=== PATIENT | female | born 1935 | race African-American/Black ===

== ENCOUNTER 2016-11-09 12:31 | Inpatient (IN) | payer OTHER ==
[2016-11-09 12:46] VITALS: BMI 23.1
[2016-11-09] MEDS ORDERED: ACETAMINOPHEN INJECTION 100 ML IVPB ONE (14:09)
--- NOTE | 2016-11-09 14:09 | PDOC ---
History of Present Illness - General History Source: Patient, Old Records Exam Limitations: No Limitations - History of Present Illness Initial Comments: 11/09/16 17:28 The patient is a 80 year old female, accompanied by son, with a past medical history of dementia and HTN who presents to the emergency department for further evaluation of knee pain. Son states that yesterday he called his mother and became concerned when she did not answer the phone. When son went to check on the patient she was in the bathroom trying to hold herself up on the sink. Patient states that 2 days ago she slowly slid out of her chair and was on the floor for an undetermined amount of time. <Byron Glover - Last Filed: 11/09/16 17:46> <Carl Guajardo - Last Filed: 11/09/16 18:29> - General Chief Complaint: Pain, Acute Stated Complaint: LEG PAIN Time Seen by Provider: 11/09/16 14:08 Past History <Byron Glover - Last Filed: 11/09/16 17:46> - Past Medical History CVA: Yes Dementia: Yes HTN: Yes Other medical history: athritis - Psycho/Social/Smoking Cessation Hx Suicidal Ideation: No Smoking History: Never smoked <Carl Guajardo - Last Filed: 11/09/16 18:29> - Past Medical History Allergies/Adverse Reactions: Allergies Allergy/AdvReac Type Severity Reaction Status Date / Time No Known Allergies Allergy Verified 11/09/16 12:37 Home Medications: Ambulatory Orders Memantine HCl [Namenda Xr] 28 mg PO DAILY 11/09/16 Review of Systems - Review of Systems Able to Perform ROS?: Yes Comments:: 11/09/16 17:29 GENERAL/CONSTITUTIONAL: No fever or chills. No weakness. HEAD, EYES, EARS, NOSE AND THROAT: No change in vision. No ear pain or discharge. No sore throat. CARDIOVASCULAR: No chest pain or shortness of breath. RESPIRATORY: No cough, wheezing, or hemoptysis. GASTROINTESTINAL: No nausea, vomiting, diarrhea or constipation. GENITOURINARY: No dysuria, frequency, or change in urination. MUSCULOSKELETAL:(+) Knee pain. No neck or back pain. SKIN: No rash NEUROLOGIC: No headache, vertigo, loss of consciousness, or change in strength/ sensation. ENDOCRINE: No increased thirst. No abnormal weight change. HEMATOLOGIC/LYMPHATIC: No anemia, easy bleeding, or history of blood clots. ALLERGIC/IMMUNOLOGIC: No hives or skin allergy. <DukerosarioByron - Last Filed: 11/09/16 17:46> *Physical Exam - Vital Signs Last Vital Signs Temp Pulse Resp BP Pulse Ox 97.1 F L 103 H 18 195/92 97 11/09/16 12:37 11/09/16 12:37 11/09/16 12:37 11/09/16 12:37 11/09/16 12:37 - Physical Exam Comments: 11/09/16 17:29 GENERAL: Awake, alert, in no acute distress HEAD: No signs of trauma EYES: PERRLA, EOMI, sclera anicteric, conjunctiva clear ENT: Auricles normal inspection, hearing grossly normal, nares patent, oropharynx clear without exudates. Moist mucosa NECK: Normal ROM, supple, no lymphadenopathy, JVD, or masses LUNGS: Breath sounds equal, clear to auscultation bilaterally. No wheezes, and no crackles HEART: Regular rate and rhythm, normal S1 and S2, no murmurs, rubs or gallops ABDOMEN: Soft, nontender, normoactive bowel sounds. No guarding, no rebound. No masses EXTREMITIES: (+) Tenderness along medial collateral ligament, right leg effusion. Normal range of motion. No clubbing or cyanosis. No cords, erythema. NEUROLOGICAL: (+) Inability to stand or ambulate leg. Cranial nerves II through XII grossly intact. Normal speech. SKIN: Warm, Dry, normal turgor, no rashes or lesions noted. <ShamirGoyo ponceke - Last Filed: 11/09/16 17:46> - Vital Signs Last Vital Signs Temp Pulse Resp BP Pulse Ox 97.1 F L 103 H 18 195/92 97 11/09/16 12:37 11/09/16 12:37 11/09/16 12:37 11/09/16 12:37 11/09/16 12:37 <Carl Guajardo - Last Filed: 11/09/16 18:29> ED Treatment Course - LABORATORY CBC & Chemistry Diagram: 11/09/16 14:36 11/09/16 14:36 - ADDITIONAL ORDERS Additional order review: Laboratory Results 11/09/16 14:36 Sodium 140 Potassium 4.2 Chloride 104 Carbon Dioxide 27 Anion Gap 9 BUN 14 Creatinine 0.9 Creat Clearance w eGFR > 60 Random Glucose 116 H Calcium 9.3 Total Bilirubin 1.1 H AST 17 ALT 14 Alkaline Phosphatase 76 Creatine Kinase 304 H CK-MB (CK-2) 1.800 Troponin I < 0.02 Total Protein 7.2 Albumin 3.4 11/09/16 14:36 RBC 4.99 MCV 82.2 MCHC 32.2 RDW 15.4 MPV 9.0 - Medications Given in the ED: ED Medications Discontinued Medications Generic Name Dose Route Start Last Admin Trade Name Freq PRN Reason Stop Dose Admin Acetaminophen 1,000 mg 11/09/16 14:36 11/09/16 14:36 Ofirmev Injection - IVPB 11/09/16 14:37 1,000 mg NOW ONE Administration Sodium Chloride 1,000 ml 11/09/16 14:33 11/09/16 14:34 Normal Saline - IV 11/09/16 14:34 1,000 ml NOW ONE Administration <Byron Glover - Last Filed: 11/09/16 17:46> - LABORATORY CBC & Chemistry Diagram: 11/09/16 14:36 11/09/16 14:36 <Carl Guajardo - Last Filed: 11/09/16 18:29> *DC/Admit/Observation/Transfer - Attestations Scribe Attestion: 11/09/16 17:29 Documentation prepared by Byron Glover, acting as medical education manager for Carl Guajardo DO. <Byron Glover - Last Filed: 11/09/16 17:46> - Discharge Dispostion Admit: Yes - Attestations Physician Attestion: 11/09/16 14:09 I, Dr. Carl Guajardo, attest that this document has been prepared under my direction and personally reviewed by me in its entirety. I further attest, that it accurately reflects all work, treatment, procedures and medical decision -making performed by me. <Carl Guajardo - Last Filed: 11/09/16 18:29> Diagnosis at time of Disposition: Inability to ambulate due to knee, Effusion, right knee, Confusion, Ataxia Medial collateral ligament sprain of knee Qualifiers: Encounter type: initial encounter Laterality: right Qualified Code(s): S83.411A - Sprain of medial collateral ligament of right knee, initial encounter Dementia Qualifiers: Dementia type: unspecified type Dementia behavioral disturbance: without behavioral disturbance Qualified Code(s): F03.90 - Unspecified dementia without behavioral disturbance - Discharge Dispostion Condition at time of disposition: Improved - Referrals Referrals: Daly Del Castillo MD [Primary Care Provider] -
[2016-11-09] MEDS ORDERED: SODIUM CHLORIDE 0.9% 1000 ML INFUS.BAG IV ONE (14:33)
[2016-11-09] MEDS ORDERED: ACETAMINOPHEN 1000 MG/100 ML VIAL (NON FORMULARY) IVPB ONE (14:36)
[2016-11-09 14:43] LABS: MCH 26.4 pg (25.7-33.7); MCHC 32.2 g/dl (32.0-36.0); MEAN CELL VOLUME 82.2 fl (80-96); PLATELET COUNT 144 K/MM3 (134-434); RDW 15.4 % (11.6-15.6); WHITE BLOOD COUNT 10.7 K/mm3 (4.0-10.0)
[2016-11-09 15:16] LABS: ALBUMIN 3.4 g/dl (3.4-5.0); ANION GAP 9 (8-16); BILIRUBIN,TOTAL 1.1 mg/dL (0.2-1.0); CALCIUM 9.3 mg/dL (8.5-10.1); CO2 27 mmol/L (21-32); COCKROFT - GAULT 48.1865; CREATININE 0.9 mg/dL (0.55-1.02); GLUCOSE,RANDOM 116 mg/dL (74-106); SGPT/ALT 14 U/L (12-78); TOT PROT 7.2 g/dl (6.4-8.2)
[2016-11-09 15:19] LABS: ALK PHOS 76 U/L (45-117); TROPONIN I < 0.02 ng/ml (0.00-0.05)
[2016-11-09 15:20] LABS: SGOT/AST 17 U/L (15-37)
[2016-11-09] MEDS ORDERED: traMADol HCL 50 MG TABLET PO ONE (18:19)
[2016-11-09] MEDS ORDERED: SODIUM CHLORIDE 1,000 ML IV SCH (18:30)
[2016-11-09] MEDS ORDERED: traMADol HCL 50 MG TABLET ONE (21:24)
[2016-11-09 22:26] LABS: URINE APPEARANCE CLEAR; URINE BILIRUBIN NEGATIVE (NEGATIVE); URINE BLOOD NEGATIVE (NEGATIVE); URINE COLOR AMBER; URINE GLUCOSE (UA) NEGATIVE (NEGATIVE); URINE KETONE 1+ (NEGATIVE); URINE LEUK ESTERASE NEGATIVE (NEGATIVE); URINE NITRITE NEGATIVE (NEGATIVE); URINE UROBILINOGEN 4.0 E.U/dl E.U./dl (0.2-1.0)
[2016-11-09 22:46] LABS: URINE PROTEIN 1+ (NEGATIVE)
[2016-11-09 22:50] LABS: URINE BACTERIA RARE /hpf (NONE SEEN); URINE MUCUS MANY; URINE RBC 1 /hpf (0-3); URINE WBC 22 /hpf (3-5)
[2016-11-10] MEDS: DEXTROSE 5%-0.45% SALINE 1,000 ML IV SCH ×2 (02:17→11:05)
[2016-11-10] MEDS ORDERED: PATIENT'S OWN MEDICATION (NON-FORMULARY) (Memantine Hcl [Namenda Xr] 28 MG) PO SCH (10:00)
[2016-11-10] MEDS: HEPARIN NA (PORCINE) 5,000 UNITS/ML 1ML VIAL SQ SCH ×2 (11:06→23:05)
[2016-11-10] MEDS ORDERED: MEMANTINE HCL 10 MG TABLET (FP) PO SCH (11:45)
[2016-11-10] MEDS ORDERED: INFLUENZA VACCINE 45 MCG/0.5 ML (MDV 16-17) IM ONE (16:50)
[2016-11-10] MEDS ORDERED: PNEUMOC 13-VAL CONJ-DIP CRM/PF 0.5 ML DISP.SYRIN IM ONE (16:50)
--- NOTE | 2016-11-10 17:23 | PN ---
Progress Note, Physician History of Present Illness: Pt seen and examined H&P to follow - Current Medication List Current Medications: Active Medications Heparin Sodium (Porcine) (Heparin -) 5,000 unit SQ BID COUNT INCLUDES [facility] Last Admin: 11/10/16 11:06 Dose: 5,000 unit Dextrose/Sodium Chloride (D5-1/2ns -) 1,000 mls @ 75 mls/hr IV ASDIR COUNT INCLUDES THE [facility] Last Admin: 11/10/16 11:05 Dose: 75 mls/hr Memantine (Namenda -) 10 mg PO BID COUNT INCLUDES THE [facility] - Objective Vital Signs: Vital Signs Temperature 98.6 F 11/10/16 13:51 Pulse Rate 103 H 11/10/16 13:51 Respiratory Rate 20 11/10/16 13:51 Blood Pressure 152/99 11/10/16 13:51 O2 Sat by Pulse Oximetry (%) 98 11/10/16 07:46
[2016-11-10] MEDS: amLODIPine BESYLATE 2.5 MG TABLET (FP) PO SCH (20:17)
[2016-11-10] MEDS ORDERED: amLODIPine BESYLATE 2.5 MG TABLET (FP) PO ONE (21:30)
[2016-11-10] MEDS: MEMANTINE HCL 10 MG TABLET (FP) PO SCH (23:13)
[2016-11-11 07:39] LABS: BASOPHIL 0.6 % (0-2.0); EOSINOPHIL 0.3 % (0-4.5); MEAN CELL VOLUME 81.7 fl (80-96); MEAN PLT VOLUME 9.9 fl (7.5-11.1); NEUTROPHILS 73.1 % (42.8-82.8); PLATELET COUNT 120 K/MM3 (134-434); RDW 15.4 % (11.6-15.6); WHITE BLOOD COUNT 7.4 K/mm3 (4.0-10.0)
[2016-11-11 08:24] LABS: ALBUMIN 2.5 g/dl (3.4-5.0); ALK PHOS 73 U/L (45-117); ANION GAP 12 (8-16); CALCIUM 8.5 mg/dL (8.5-10.1); CO2 25 mmol/L (21-32); COCKROFT - GAULT 86.7425; CREATININE 0.5 mg/dL (0.55-1.02); GLUCOSE,RANDOM 93 mg/dL (74-106); SGOT/AST 13 U/L (15-37); SGPT/ALT 13 U/L (12-78); TOT PROT 5.6 g/dl (6.4-8.2)
--- NOTE | 2016-11-11 09:53 | CONSULT ---
Consult - text type - Consultation Consultation Note: FULL CONSULTATION DICTATED IMP: DJD RIGHT KNEE AND ? PROBLEM RIGHT SHOULDER PLAN: XRAY RIGHT SHOULDER, ANALGESICS.
[2016-11-11] MEDS: MEMANTINE HCL 10 MG TABLET (FP) PO SCH ×2 (09:55→21:47)
[2016-11-11] MEDS: HEPARIN NA (PORCINE) 5,000 UNITS/ML 1ML VIAL SQ SCH ×2 (09:55→21:47)
[2016-11-11] MEDS: amLODIPine BESYLATE 2.5 MG TABLET (FP) PO SCH (09:55)
[2016-11-11] MEDS: ACETAMINOPHEN 500 MG TABLET (FP) PO PRN ×2 (10:52→21:47)
--- NOTE | 2016-11-11 13:13 | CONS ---
DATE OF CONSULTATION: 11/11/2016 The patient is an 80-year-old demented and confused female status post questionable fall at home, complaining of some pain in her right shoulder and her right knee. Patient cannot give really a history of when she fell or her level of pain prior to the fall. 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 On physical exam, she has a great deal of pain with any range of motion of her right knee and the knee only moves about 0 to 30 degrees. Good stability, varus/valgus. Calf is soft, nontender. Neurovascularly intact. Right upper extremity is also held at her side. Difficult to examine her but with gentle motion I can pretty much make it out that her pain is coming from her shoulder, elbow, wrist and fingers appear to be intact. There does not appear to be any crepitus or swelling in any location but moving her shoulder does hurt her. Nontender clavicle, AC joint, acromion, bicipital groove. She also has good motion in hip, ankle and toes. X-rays which are reviewed of her right knee show severe tricompartmental DJD. CAT scan reveals the same with no evidence of any acute fracture. IMPRESSION: Severe degenerative joint disease, right knee. No acute fracture. Some sort of derangement of right shoulder. I ordered x-rays of her shoulder, gave her some analgesics and I will see how she does after the x-ray and on the analgesics and see how she does. ALBIN SUGGS M.D. [id number]
--- NOTE | 2016-11-11 23:46 | HP ---
Admitting History and Physical - Admission Chief Complaint: Unsteady gait. Pt was seen and examined 11/10/16 however it was mistakenly entered as a progress note History of Present Illness: Pt is a 80 y/o female w/ PMH significant for dementia who loves at home with her son. Pt was found by her son in the bathroom bc she couldn't stand up. Pt had fallen the night before and was stuck in the bedroom and then made her way into the bathroom. Pt c/o pain initially to her right knee and denied any LOC or head trauma. In the ER pt had ct scan head wc did not show any acute pathology. 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 ...: No - Past Surgical History Additional Past Surgical History: Lt knee replacement - Smoking History Smoking history: Never smoked - Alcohol/Substance Use Hx Alcohol Use: No Home Medications - Allergies Allergies/Adverse Reactions: Allergies Allergy/AdvReac Type Severity Reaction Status Date / Time No Known Allergies Allergy Verified 11/09/16 12:37 - Home Medications Home Medications: Ambulatory Orders Memantine HCl [Namenda Xr] 28 mg PO DAILY 11/09/16 Family Disease History - Family Disease History Family History: Unable to Obtain Review of Systems Unable to obtain ROS, reason: Dementia Physical Examination Vital Signs: Vital Signs Temperature 98.9 F 11/11/16 22:00 Pulse Rate 101 H 11/11/16 22:00 Respiratory Rate 20 11/11/16 22:00 Blood Pressure 155/61 11/11/16 22:00 O2 Sat by Pulse Oximetry (%) 99 11/11/16 09:00 Constitutional: Yes: Well Nourished HENT: Yes: WNL Neck: Yes: Supple Cardiovascular: Yes: WNL, Regular Rate and Rhythm Respiratory: Yes: WNL, Regular, CTA Bilaterally Gastrointestinal: Yes: WNL, Normal Bowel Sounds, Soft Musculoskeletal: Yes: WNL Extremities: Yes: Other ((+) slight swelling rt knee) Neurological: Yes: WNL Labs: CBC, BMP 11/11/16 06:00 11/11/16 06:00 Problem List - Problems (1) Inability to ambulate due to knee Assessment/Plan: Ortho consult pain management Pt will need sw consult Code(s): R26.2 - DIFFICULTY IN WALKING, NOT ELSEWHERE CLASSIFIED (2) Dementia Code(s): F03.90 - UNSPECIFIED DEMENTIA WITHOUT BEHAVIORAL DISTURBANCE Qualifiers: Dementia type: unspecified type Dementia behavioral disturbance: without behavioral disturbance Qualified Code(s): F03.90 - Unspecified dementia without behavioral disturbance (3) Unsteady gait Assessment/Plan: PT eval Code(s): R26.81 - UNSTEADINESS ON FEET
--- NOTE | 2016-11-11 23:47 | PN ---
Progress Note, Physician History of Present Illness: Pt has been slightly tachy Pt also is complaining of shoulder pain - Current Medication List Current Medications: Active Medications Acetaminophen (Tylenol -) 1,000 mg PO Q6H PRN PRN Reason: FEVER OR PAIN Last Admin: 11/11/16 21:47 Dose: 1,000 mg Amlodipine Besylate (Norvasc -) 2.5 mg PO DAILY [facility] Last Admin: 11/11/16 09:55 Dose: 2.5 mg Heparin Sodium (Porcine) (Heparin -) 5,000 unit SQ BID [facility] Last Admin: 11/11/16 21:47 Dose: 5,000 unit Memantine (Namenda -) 10 mg PO BID [facility] Last Admin: 11/11/16 21:47 Dose: 10 mg - Objective Vital Signs: Vital Signs Temperature 98.9 F 11/11/16 22:00 Pulse Rate 101 H 11/11/16 22:00 Respiratory Rate 20 11/11/16 22:00 Blood Pressure 155/61 11/11/16 22:00 O2 Sat by Pulse Oximetry (%) 99 11/11/16 09:00 Constitutional: Yes: Well Nourished Neck: Yes: Supple Cardiovascular: Yes: Tachycardia Respiratory: Yes: WNL, Regular, CTA Bilaterally Gastrointestinal: Yes: WNL, Normal Bowel Sounds, Soft Extremities: Yes: Other ((+) slight swelling rt knee) Labs: CBC, BMP 11/11/16 06:00 11/11/16 06:00 Problem List - Problems (1) Tachycardia Assessment/Plan: Cardio consult Check echo/tsh/labs Code(s): R00.0 - TACHYCARDIA, UNSPECIFIED (2) Inability to ambulate due to knee Assessment/Plan: Ortho consult noted Will get PT eval pain management Pt will need sw consult ?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 Xrays have not shown any acute pathology Code(s): R26.2 - DIFFICULTY IN WALKING, NOT ELSEWHERE CLASSIFIED (3) Dementia Code(s): F03.90 - UNSPECIFIED DEMENTIA WITHOUT BEHAVIORAL DISTURBANCE Qualifiers: Dementia type: unspecified type Dementia behavioral disturbance: without behavioral disturbance Qualified Code(s): F03.90 - Unspecified dementia without behavioral disturbance (4) Unsteady gait Assessment/Plan: PT eval Code(s): R26.81 - UNSTEADINESS ON FEET
[2016-11-12] MEDS: MEMANTINE HCL 10 MG TABLET (FP) PO SCH ×2 (09:49→22:31)
[2016-11-12] MEDS: HEPARIN NA (PORCINE) 5,000 UNITS/ML 1ML VIAL SQ SCH ×2 (09:49→22:31)
--- NOTE | 2016-11-12 09:50 | PN ---
Progress Note (short form) - Note Progress Note: Ortho Pt seen and examined with right knee and shoulder pain. Pt states that she had an injection into her right shoulder a few weeks ago. R UE- + swelling, + ttp, limited rom, nvi R LE- + swelling, + ttp, decr rom, nvi a/p- right knee djd, right shoulder GH DJD with chronic rc arthropathy Pt defers an injection at the present time PT wbat pain control december d/c from ortho pov
--- NOTE | 2016-11-12 13:50 | CON.CARD ---
Consult Reason for Consultation:: syncope/fall - History of Present Illness History of Present Illness: Pt is a 80 y/o female w/ PMH significant for dementia who loves at home with her son. Pt was found by her son in the bathroom bc she couldn't stand up. Pt had fallen the night before and was stuck in the bedroom and then made her way into the bathroom. Pt c/o pain initially to her right knee and denied any LOC or head trauma. In the ER pt had ct scan head wc did not show any acute pathology. 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 ...: No - Alcohol/Substance Use Hx Alcohol Use: No - Smoking History Smoking history: Never smoked Home Medications - Allergies Allergies/Adverse Reactions: Allergies Allergy/AdvReac Type Severity Reaction Status Date / Time No Known Allergies Allergy Verified 11/09/16 12:37 - Home Medications Home Medications: Ambulatory Orders Memantine HCl [Namenda Xr] 28 mg PO DAILY 11/09/16 Review of Systems - Review of Systems Constitutional: reports: No Symptoms Eyes: reports: No Symptoms HENT: reports: No Symptoms Neck: reports: No Symptoms Cardiovascular: reports: No Symptoms Gastrointestinal: reports: No Symptoms Genitourinary: reports: No Symptoms Breasts: reports: No Symptoms Reported Musculoskeletal: reports: No Symptoms Integumentary: reports: No Symptoms Neurological: reports: No Symptoms Endocrine: reports: No Symptoms Hematology/Lymphatic: reports: No Symptoms Psychiatric: reports: No Symptoms Vital Signs: Vital Signs Temperature 97.8 F 11/12/16 10:00 Pulse Rate 99 H 11/12/16 10:00 Respiratory Rate 18 11/12/16 10:00 Blood Pressure 127/66 11/12/16 10:00 O2 Sat by Pulse Oximetry (%) 98 11/11/16 21:00 Constitutional: Yes: Well Nourished, No Distress, Calm Eyes: Yes: WNL, Conjunctiva Clear, EOM Intact HENT: Yes: WNL, Atraumatic, Normocephalic Neck: Yes: WNL, Supple, Trachea Midline Respiratory: Yes: WNL, Regular, CTA Bilaterally Gastrointestinal: Yes: WNL, Normal Bowel Sounds Renal/: Yes: WNL Cardiovascular: Yes: WNL, Regular Rate and Rhythm Musculoskeletal: Yes: WNL Extremities: Yes: WNL Integumentary: Yes: WNL Neurological: Yes: WNL, Alert, Oriented ...Motor Strength: WNL Psychiatric: Yes: WNL, Alert, Oriented - Other Data Labs, Other Data: CBC, BMP 11/11/16 06:00 11/11/16 06:00 Laboratory Tests 11/09/16 11/09/16 11/09/16 14:36 14:36 21:45 WBC 10.7 H RBC 4.99 Hgb 13.2 Hct 41.0 MCV 82.2 MCHC 32.2 RDW 15.4 Plt Count 144 MPV 9.0 Neutrophils % Lymphocytes % Monocytes % Eosinophils % Basophils % Sodium 140 Potassium 4.2 Chloride 104 Carbon Dioxide 27 Anion Gap 9 BUN 14 Creatinine 0.9 Creat Clearance w eGFR > 60 Random Glucose 116 H Calcium 9.3 Total Bilirubin 1.1 H AST 17 ALT 14 Alkaline Phosphatase 76 Creatine Kinase 304 H CK-MB (CK-2) 1.800 Troponin I < 0.02 Total Protein 7.2 Albumin 3.4 TSH Urine Color Julia Urine Appearance Clear Urine pH 5.0 Ur Specific [place] 1.029 Urine Protein 1+ H Urine Glucose (UA) Negative Urine Ketones 1+ H Urine Blood Negative Urine Nitrite Negative Urine Bilirubin Negative Urine Urobilinogen 4.0 e.u/dl H Ur Leukocyte Esterase Negative Urine RBC 1 Urine WBC 22 Ur Epithelial Cells Rare Urine Bacteria Rare Urine Mucus Many 11/11/16 11/11/16 11/12/16 06:00 06:00 06:15 WBC 7.4 D RBC 4.40 Hgb 11.9 Hct 35.9 MCV 81.7 MCHC 33.0 RDW 15.4 Plt Count 120 L MPV 9.9 Neutrophils % 73.1 Lymphocytes % 14.5 Monocytes % 11.5 H Eosinophils % 0.3 Basophils % 0.6 Sodium 138 Potassium 3.1 L D Chloride 101 Carbon Dioxide 25 Anion Gap 12 BUN 3 L D Creatinine 0.5 L D Creat Clearance w eGFR > 60 Random Glucose 93 Calcium 8.5 Total Bilirubin 1.0 AST 13 L D ALT 13 Alkaline Phosphatase 73 Creatine Kinase CK-MB (CK-2) Troponin I Total Protein 5.6 L D Albumin 2.5 L D TSH 1.17 Urine Color Urine Appearance Urine pH Ur Specific [place] Urine Protein Urine Glucose (UA) Urine Ketones Urine Blood Urine Nitrite Urine Bilirubin Urine Urobilinogen Ur Leukocyte Esterase Urine RBC Urine WBC Ur Epithelial Cells Urine Bacteria Urine Mucus Imaging - Results EKG: Image Reviewed (sr wnl) Problem List - Problems (1) Ataxia Code(s): R27.0 - ATAXIA, UNSPECIFIED (2) Confusion Code(s): R41.0 - DISORIENTATION, UNSPECIFIED (3) Dementia Code(s): F03.90 - UNSPECIFIED DEMENTIA WITHOUT BEHAVIORAL DISTURBANCE Qualifiers: Dementia type: unspecified type Dementia behavioral disturbance: without behavioral disturbance Qualified Code(s): F03.90 - Unspecified dementia without behavioral disturbance (4) Effusion, right knee Code(s): M25.461 - EFFUSION, RIGHT KNEE (5) Inability to ambulate due to knee Code(s): R26.2 - DIFFICULTY IN WALKING, NOT ELSEWHERE CLASSIFIED (6) Medial collateral ligament sprain of knee Code(s): S83.419A - SPRAIN OF MEDIAL COLLATERAL LIGAMENT OF UNSP KNEE, INIT Qualifiers: Encounter type: initial encounter Laterality: right Qualified Code( s): S83.411A - Sprain of medial collateral ligament of right knee, initial encounter (7) Tachycardia Code(s): R00.0 - TACHYCARDIA, UNSPECIFIED (8) Unsteady gait Code(s): R26.81 - UNSTEADINESS ON FEET Assessment/Plan dementia s/p fall hypokalemia nl ekg plan ;echo carotids lipid profile will f/u
[2016-11-12] MEDS ORDERED: POTASSIUM CHLORIDE TABS 20 MEQ TABLET.ER (FP) PO ONE ×2 (14:45→17:00)
[2016-11-12] MEDS ORDERED: ACETAMINOPHEN 325 MG TABLET (FP) PO PRN (18:44)
--- NOTE | 2016-11-12 21:37 | CONSULT ---
Consult Consult Specialty:: infectious diseases Referred by:: Reason for Consultation:: cellulitis knee joint - History of Present Illness Chief Complaint: pain and swelling of the knee rt History of Present Illness: 80 y/o female w/ PMH significant for dementia who loves at home with her son. Pt was found by her son in the bathroom bc she couldn't stand up. Pt had fallen the night before and was stuck in the bedroom and then made her way into the bathroom. Pt c/o pain initially to her right knee and denied any LOC or head trauma. 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 ...: No - Alcohol/Substance Use Hx Alcohol Use: No - Smoking History Smoking history: Never smoked Home Medications - Allergies Allergies/Adverse Reactions: Allergies Allergy/AdvReac Type Severity Reaction Status Date / Time No Known Allergies Allergy Verified 11/09/16 12:37 - Home Medications Home Medications: Ambulatory Orders Memantine HCl [Namenda Xr] 28 mg PO DAILY 11/09/16 Review of Systems - Review of Systems Constitutional: reports: Fever, Other Eyes: reports: No Symptoms HENT: reports: No Symptoms Neck: reports: No Symptoms Cardiovascular: reports: No Symptoms Respiratory: reports: No Symptoms Gastrointestinal: reports: No Symptoms Genitourinary: reports: No Symptoms Musculoskeletal: reports: Joint Pain, Joint Swelling Integumentary: reports: Change in Color, Erythema Neurological: reports: No Symptoms Endocrine: reports: No Symptoms Hematology/Lymphatic: reports: No Symptoms Psychiatric: reports: No Symptoms Physical Exam Vital Signs: Vital Signs Temperature 97.8 F 11/12/16 10:00 Pulse Rate 99 H 11/12/16 10:00 Respiratory Rate 18 11/12/16 10:00 Blood Pressure 127/66 11/12/16 10:00 O2 Sat by Pulse Oximetry (%) 95 11/12/16 09:00 Constitutional: Yes: Calm, Mild Distress Eyes: Yes: Conjunctiva Clear HENT: Yes: Atraumatic Neck: Yes: Supple, Trachea Midline Cardiovascular: Yes: Regular Rate and Rhythm Respiratory: Yes: Regular, CTA Bilaterally Gastrointestinal: Yes: Normal Bowel Sounds, Soft Extremities: Yes: Erythema (rt knee joint), Other Integumentary: Yes: Erythema (knee joint) Neurological: Yes: Alert, Oriented Psychiatric: Yes: Alert, Oriented Labs: CBC, BMP 11/11/16 06:00 11/11/16 06:00 Imaging - Results Chest X-ray: Report Reviewed, Image Reviewed Cat Scan: Report Reviewed, Image Reviewed Ultrasound: Report Reviewed, Image Reviewed Other: Report Reviewed, Image Reviewed Assessment/Plan Problem List - Problems (1) Fever Code(s): R50.9 - FEVER, UNSPECIFIED (2) Inability to ambulate due to knee Code(s): R26.2 - DIFFICULTY IN WALKING, NOT ELSEWHERE CLASSIFIED (3) Tachycardia Code(s): R00.0 - TACHYCARDIA, UNSPECIFIED (4) Dementia Code(s): F03.90 - UNSPECIFIED DEMENTIA WITHOUT BEHAVIORAL DISTURBANCE Qualifiers: Dementia type: unspecified type Dementia behavioral disturbance: without behavioral disturbance Qualified Code(s): F03.90 - Unspecified dementia without behavioral disturbance (5) Unsteady gait Code(s): R26.81 - UNSTEADINESS ON FEET cellulitis of the rt knee joint plan await for cx report will start zosyn monitor swelling of the knee joint physio
[2016-11-12] MEDS: PIPERACILLIN/TAZOB 3.375 GM 50 ML IVPB SCH (22:29)
[2016-11-12] MEDS: ACETAMINOPHEN 500 MG TABLET (FP) PO PRN (22:31)
--- NOTE | 2016-11-12 22:56 | PN ---
Progress Note, Physician History of Present Illness: Pt spiked temp to 101.5 - Current Medication List Current Medications: Active Medications Acetaminophen (Tylenol -) 1,000 mg PO Q6H PRN PRN Reason: FEVER OR PAIN Last Admin: 11/12/16 22:31 Dose: 1,000 mg Acetaminophen (Tylenol -) 650 mg PO Q6H PRN PRN Reason: FEVER OR PAIN Heparin Sodium (Porcine) (Heparin -) 5,000 unit SQ BID [facility] Last Admin: 11/12/16 22:31 Dose: 5,000 unit Piperacillin Sod/Tazobactam Sod (Zosyn 3.375gm Ivpb (Pre-Docked)) 50 mls @ 100 mls/hr IVPB Q8H-IV [facility] PRN Reason: Protocol Last Admin: 11/12/16 22:29 Dose: 100 mls/hr Memantine (Namenda -) 10 mg PO BID [facility] Last Admin: 11/12/16 22:31 Dose: 10 mg - Objective Vital Signs: Vital Signs Temperature 101.5 F H 11/12/16 17:00 Pulse Rate 104 H 11/12/16 17:00 Respiratory Rate 20 11/12/16 17:00 Blood Pressure 144/99 11/12/16 17:00 O2 Sat by Pulse Oximetry (%) 95 11/12/16 09:00 Constitutional: Yes: Well Nourished Neck: Yes: Supple Cardiovascular: Yes: WNL, Regular Rate and Rhythm Respiratory: Yes: WNL, Regular, CTA Bilaterally Gastrointestinal: Yes: WNL, Normal Bowel Sounds, Soft Labs: CBC, BMP 11/11/16 06:00 11/11/16 06:00 Problem List - Problems (1) Fever Assessment/Plan: Monitor cultures ID consult noted IV zosyn WBC is normal Code(s): R50.9 - FEVER, UNSPECIFIED (2) Inability to ambulate due to knee Assessment/Plan: Ortho consult noted PT eval pain management Spoke to pt's son and DC planning to STR Code(s): R26.2 - DIFFICULTY IN WALKING, NOT ELSEWHERE CLASSIFIED (3) Tachycardia Code(s): R00.0 - TACHYCARDIA, UNSPECIFIED (4) Dementia Code(s): F03.90 - UNSPECIFIED DEMENTIA WITHOUT BEHAVIORAL DISTURBANCE Qualifiers: Dementia type: unspecified type Dementia behavioral disturbance: without behavioral disturbance Qualified Code(s): F03.90 - Unspecified dementia without behavioral disturbance (5) Unsteady gait Code(s): R26.81 - UNSTEADINESS ON FEET
[2016-11-13] MEDS: PIPERACILLIN/TAZOB 3.375 GM 50 ML IVPB SCH ×3 (02:59→17:14)
[2016-11-13 07:57] LABS: EOSINOPHIL 2.5 % (0-4.5); MCH 26.6 pg (25.7-33.7); MCHC 32.6 g/dl (32.0-36.0); MEAN CELL VOLUME 81.7 fl (80-96); MEAN PLT VOLUME 9.4 fl (7.5-11.1); NEUTROPHILS 58.3 % (42.8-82.8); PLATELET COUNT 159 K/MM3 (134-434); RDW 15.4 % (11.6-15.6); WHITE BLOOD COUNT 4.8 K/mm3 (4.0-10.0)
[2016-11-13 08:26] LABS: ALBUMIN 2.2 g/dl (3.4-5.0); ANION GAP 10 (8-16); CALCIUM 8.2 mg/dL (8.5-10.1); CO2 28 mmol/L (21-32); CREATININE 0.6 mg/dL (0.55-1.02); GLUCOSE,RANDOM 91 mg/dL (74-106); SGOT/AST 17 U/L (15-37); SGPT/ALT 17 U/L (12-78)
[2016-11-13 08:28] LABS: ALK PHOS 82 U/L (45-117); BILIRUBIN,TOTAL 0.7 mg/dL (0.2-1.0); TOT PROT 5.4 g/dl (6.4-8.2)
[2016-11-13 08:35] LABS: C-REACTIVE PROTEIN 16.5 MG/DL (0.00-0.3)
--- NOTE | 2016-11-13 08:57 | PN ---
Progress Note (short form) - Note Progress Note: Ortho Pt seen and examined. Pt states that she has no pain in either shoulder or knee. 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
[2016-11-13 09:13] LABS: URINE APPEARANCE SLCLOUDY; URINE BILIRUBIN NEGATIVE (NEGATIVE); URINE BLOOD NEGATIVE (NEGATIVE); URINE COLOR YELLOW; URINE GLUCOSE (UA) NEGATIVE (NEGATIVE); URINE KETONE NEGATIVE (NEGATIVE); URINE NITRITE NEGATIVE (NEGATIVE); URINE PROTEIN NEGATIVE (NEGATIVE); URINE UROBILINOGEN 2.0 E.U/dl E.U./dl (0.2-1.0)
[2016-11-13 09:17] LABS: URINE LEUK ESTERASE 3+ (NEGATIVE)
[2016-11-13 09:24] LABS: URINE BACTERIA RARE /hpf (NONE SEEN); URINE RBC 1 /hpf (0-3); URINE WBC 65 /hpf (3-5)
[2016-11-13] MEDS: MEMANTINE HCL 10 MG TABLET (FP) PO SCH ×2 (10:10→22:40)
[2016-11-13] MEDS: HEPARIN NA (PORCINE) 5,000 UNITS/ML 1ML VIAL SQ SCH ×2 (10:10→22:40)
--- NOTE | 2016-11-13 15:13 | PN ---
Progress Note, Physician Chief Complaint: Pt denies chest pain or dyspnea. Confused as to where she is and the date. Her son, Balbir, is at beside. History of Present Illness: The patient is an 80 year old female, accompanied by son, with a past medical history of dementia and HTN who presents to the emergency department for further evaluation of knee pain. Son states that yesterday he called his mother and became concerned when she did not answer the phone. When son went to check on the patient she was in the bathroom trying to hold herself up on the sink. Patient states that 2 days ago she slowly slid out of her chair and was on the floor for an undetermined amount of time. - Current Medication List Current Medications: Active Medications Acetaminophen (Tylenol -) 1,000 mg PO Q6H PRN PRN Reason: FEVER OR PAIN Last Admin: 11/12/16 22:31 Dose: 1,000 mg Acetaminophen (Tylenol -) 650 mg PO Q6H PRN PRN Reason: FEVER OR PAIN Heparin Sodium (Porcine) (Heparin -) 5,000 unit SQ BID [facility] Last Admin: 11/13/16 10:10 Dose: 5,000 unit Piperacillin Sod/Tazobactam Sod (Zosyn 3.375gm Ivpb (Pre-Docked)) 50 mls @ 100 mls/hr IVPB Q8H-IV [facility] PRN Reason: Protocol Last Admin: 11/13/16 10:10 Dose: 100 mls/hr Memantine (Namenda -) 10 mg PO BID [facility] Last Admin: 11/13/16 10:10 Dose: 10 mg - Objective Vital Signs: Vital Signs Temperature 98.3 F 11/13/16 10:00 Pulse Rate 98 H 11/13/16 10:00 Respiratory Rate 20 11/13/16 10:00 Blood Pressure 122/84 11/13/16 10:00 O2 Sat by Pulse Oximetry (%) 97 11/13/16 09:00 Constitutional: Yes: No Distress Eyes: Yes: WNL HENT: Yes: WNL Neck: Yes: WNL Cardiovascular: Yes: Regular Rate and Rhythm, Murmur, S1, S2, S4 Respiratory: Yes: Regular Gastrointestinal: Yes: Soft ...Rectal Exam: Yes: Deferred Genitourinary: No: Anuria Musculoskeletal: Yes: Muscle Weakness Edema: No Peripheral Pulses WNL: Yes Integumentary: Yes: WNL Neurological: Yes: Alert Psychiatric: Yes: Other (dementia) Labs: CBC, BMP 11/13/16 06:00 11/13/16 06:00 Problem List - Problems (1) Confusion Code(s): R41.0 - DISORIENTATION, UNSPECIFIED (2) Dementia Code(s): F03.90 - UNSPECIFIED DEMENTIA WITHOUT BEHAVIORAL DISTURBANCE Qualifiers: Dementia type: unspecified type Dementia behavioral disturbance: without behavioral disturbance Qualified Code(s): F03.90 - Unspecified dementia without behavioral disturbance (3) Inability to ambulate due to knee Code(s): R26.2 - DIFFICULTY IN WALKING, NOT ELSEWHERE CLASSIFIED (4) HTN (hypertension) Assessment/Plan: mildly elevated BP at times. F/u serially. F/u orthostatic vital signs. Code(s): I10 - ESSENTIAL (PRIMARY) HYPERTENSION
--- NOTE | 2016-11-13 22:50 | PN ---
Progress Note, Physician History of Present Illness: Pt remains afebrile - Current Medication List Current Medications: Active Medications Acetaminophen (Tylenol -) 1,000 mg PO Q6H PRN PRN Reason: FEVER OR PAIN Last Admin: 11/12/16 22:31 Dose: 1,000 mg Heparin Sodium (Porcine) (Heparin -) 5,000 unit SQ BID [facility] Last Admin: 11/13/16 22:40 Dose: 5,000 unit Piperacillin Sod/Tazobactam Sod (Zosyn 3.375gm Ivpb (Pre-Docked)) 50 mls @ 100 mls/hr IVPB Q8H-IV [facility] PRN Reason: Protocol Last Admin: 11/13/16 17:14 Dose: 100 mls/hr Memantine (Namenda -) 10 mg PO BID [facility] Last Admin: 11/13/16 22:40 Dose: 10 mg - Objective Vital Signs: Vital Signs Temperature 99.5 F 11/13/16 18:00 Pulse Rate 97 H 11/13/16 18:00 Respiratory Rate 20 11/13/16 18:00 Blood Pressure 114/66 11/13/16 18:00 O2 Sat by Pulse Oximetry (%) 97 11/13/16 09:00 Constitutional: Yes: Well Nourished Neck: Yes: Supple Cardiovascular: Yes: WNL, Regular Rate and Rhythm Respiratory: Yes: WNL, Regular, CTA Bilaterally Gastrointestinal: Yes: WNL, Normal Bowel Sounds, Soft Extremities: Yes: Other ((+) swelling rt knee) Labs: CBC, BMP 11/13/16 06:00 11/13/16 06:00 Problem List - Problems (1) Fever Assessment/Plan: Monitor cultures IV zosyn WBC is normal Code(s): R50.9 - FEVER, UNSPECIFIED (2) Inability to ambulate due to knee Assessment/Plan: Ortho consult noted PT eval pain management Spoke to pt's son and DC planning to STR Code(s): R26.2 - DIFFICULTY IN WALKING, NOT ELSEWHERE CLASSIFIED (3) Tachycardia Code(s): R00.0 - TACHYCARDIA, UNSPECIFIED (4) Dementia Code(s): F03.90 - UNSPECIFIED DEMENTIA WITHOUT BEHAVIORAL DISTURBANCE Qualifiers: Dementia type: unspecified type Dementia behavioral disturbance: without behavioral disturbance Qualified Code(s): F03.90 - Unspecified dementia without behavioral disturbance (5) Unsteady gait Code(s): R26.81 - UNSTEADINESS ON FEET
--- NOTE | 2016-11-13 23:23 | PN ---
Progress Note, Physician History of Present Illness: patient feels much better says knee feels much better swelling redness also decreased - Current Medication List Current Medications: Active Medications Acetaminophen (Tylenol -) 1,000 mg PO Q6H PRN PRN Reason: FEVER OR PAIN Last Admin: 11/12/16 22:31 Dose: 1,000 mg Heparin Sodium (Porcine) (Heparin -) 5,000 unit SQ BID [facility] Last Admin: 11/13/16 22:40 Dose: 5,000 unit Piperacillin Sod/Tazobactam Sod (Zosyn 3.375gm Ivpb (Pre-Docked)) 50 mls @ 100 mls/hr IVPB Q8H-IV [facility] PRN Reason: Protocol Last Admin: 11/13/16 17:14 Dose: 100 mls/hr Memantine (Namenda -) 10 mg PO BID [facility] Last Admin: 11/13/16 22:40 Dose: 10 mg - Objective Vital Signs: Vital Signs Temperature 99.5 F 11/13/16 18:00 Pulse Rate 97 H 11/13/16 18:00 Respiratory Rate 20 11/13/16 18:00 Blood Pressure 114/66 11/13/16 18:00 O2 Sat by Pulse Oximetry (%) 97 11/13/16 09:00 Constitutional: Yes: No Distress, Calm Respiratory: Yes: Regular, CTA Bilaterally Gastrointestinal: Yes: Normal Bowel Sounds, Soft Musculoskeletal: Yes: Joint Stiffness, Joint Swelling (rt knee joint) Extremities: Yes: Erythema (resolving of the knee joint) Integumentary: Yes: Erythema (resolving) Neurological: Yes: Alert, Oriented Labs: CBC, BMP 11/13/16 06:00 11/13/16 06:00 Assessment/Plan Problem List - Problems (1) Fever Code(s): R50.9 - FEVER, UNSPECIFIED (2) Inability to ambulate due to knee Code(s): R26.2 - DIFFICULTY IN WALKING, NOT ELSEWHERE CLASSIFIED (3) Tachycardia Code(s): R00.0 - TACHYCARDIA, UNSPECIFIED (4) Dementia Code(s): F03.90 - UNSPECIFIED DEMENTIA WITHOUT BEHAVIORAL DISTURBANCE Qualifiers: Dementia type: unspecified type Dementia behavioral disturbance: without behavioral disturbance Qualified Code(s): F03.90 - Unspecified dementia without behavioral disturbance (5) Unsteady gait Code(s): R26.81 - UNSTEADINESS ON FEET cellulitis of the rt knee joint plan blood cx negative continue zosyn swelling of the joint much better physio await urine cx report
[2016-11-14] MEDS: PIPERACILLIN/TAZOB 3.375 GM 50 ML IVPB SCH ×3 (01:10→18:17)
[2016-11-14] MEDS: HEPARIN NA (PORCINE) 5,000 UNITS/ML 1ML VIAL SQ SCH ×2 (11:17→21:58)
[2016-11-14] MEDS: MEMANTINE HCL 10 MG TABLET (FP) PO SCH ×2 (11:17→21:59)
--- NOTE | 2016-11-14 12:13 | PN ---
Progress Note, Physician History of Present Illness: Pt is a 80 y/o female w/ PMH significant for dementia who loves at home with her son. Pt was found by her son in the bathroom bc she couldn't stand up. Pt had fallen the night before and was stuck in the bedroom and then made her way into the bathroom. Pt c/o pain initially to her right knee and denied any LOC or head trauma. In the ER pt had ct scan head wc did not show any acute pathology. - Current Medication List Current Medications: Active Medications Acetaminophen (Tylenol -) 1,000 mg PO Q6H PRN PRN Reason: FEVER OR PAIN Last Admin: 11/12/16 22:31 Dose: 1,000 mg Heparin Sodium (Porcine) (Heparin -) 5,000 unit SQ BID [facility] Last Admin: 11/14/16 11:17 Dose: 5,000 unit Piperacillin Sod/Tazobactam Sod (Zosyn 3.375gm Ivpb (Pre-Docked)) 50 mls @ 100 mls/hr IVPB Q8H-IV [facility] PRN Reason: Protocol Last Admin: 11/14/16 11:17 Dose: 100 mls/hr Memantine (Namenda -) 10 mg PO BID [facility] Last Admin: 11/14/16 11:17 Dose: 10 mg - Objective Vital Signs: Vital Signs Temperature 98.5 F 11/14/16 05:54 Pulse Rate 79 11/14/16 05:54 Respiratory Rate 20 11/14/16 05:54 Blood Pressure 147/75 11/14/16 05:54 O2 Sat by Pulse Oximetry (%) 97 11/13/16 21:00 Eyes: Yes: WNL, Conjunctiva Clear, EOM Intact HENT: Yes: WNL, Atraumatic, Normocephalic Neck: Yes: WNL, Supple, Trachea Midline Cardiovascular: Yes: WNL, Regular Rate and Rhythm Respiratory: Yes: WNL, Regular, CTA Bilaterally Gastrointestinal: Yes: WNL, Normal Bowel Sounds Genitourinary: Yes: WNL Musculoskeletal: Yes: WNL Extremities: Yes: WNL Edema: No Integumentary: Yes: WNL Neurological: Yes: WNL, Alert, Oriented ...Motor Strength: WNL Psychiatric: Yes: WNL Labs: CBC, BMP 11/13/16 06:00 11/13/16 06:00 Problem List - Problems (1) Ataxia Code(s): R27.0 - ATAXIA, UNSPECIFIED (2) Confusion Code(s): R41.0 - DISORIENTATION, UNSPECIFIED (3) Dementia Code(s): F03.90 - UNSPECIFIED DEMENTIA WITHOUT BEHAVIORAL DISTURBANCE Qualifiers: Qualified Code(s): F03.90 - Unspecified dementia without behavioral disturbance (4) Effusion, right knee Code(s): M25.461 - EFFUSION, RIGHT KNEE (5) Inability to ambulate due to knee Code(s): R26.2 - DIFFICULTY IN WALKING, NOT ELSEWHERE CLASSIFIED (6) Medial collateral ligament sprain of knee Code(s): S83.419A - SPRAIN OF MEDIAL COLLATERAL LIGAMENT OF UNSP KNEE, INIT Qualifiers: Qualified Code(s): S83.411A - Sprain of medial collateral ligament of right knee, initial encounter (7) Tachycardia Code(s): R00.0 - TACHYCARDIA, UNSPECIFIED (8) Unsteady gait Code(s): R26.81 - UNSTEADINESS ON FEET Assessment/Plan Problems (1) Confusion Code(s): R41.0 - DISORIENTATION, UNSPECIFIED (2) Dementia Code(s): F03.90 - UNSPECIFIED DEMENTIA WITHOUT BEHAVIORAL DISTURBANCE Qualifiers: Dementia type: unspecified type Dementia behavioral disturbance: without behavioral disturbance Qualified Code(s): F03.90 - Unspecified dementia without behavioral disturbance (3) Inability to ambulate due to knee Code(s): R26.2 - DIFFICULTY IN WALKING, NOT ELSEWHERE CLASSIFIED (4) HTN (hypertension) Assessment/Plan: mildly elevated BP at times. may be f/u as outpatient.
--- NOTE | 2016-11-14 12:51 | PN ---
Progress Note, Physician History of Present Illness: doing better knee looks a lot better - Current Medication List Current Medications: Active Medications Acetaminophen (Tylenol -) 1,000 mg PO Q6H PRN PRN Reason: FEVER OR PAIN Last Admin: 11/12/16 22:31 Dose: 1,000 mg Heparin Sodium (Porcine) (Heparin -) 5,000 unit SQ BID [facility] Last Admin: 11/14/16 11:17 Dose: 5,000 unit Piperacillin Sod/Tazobactam Sod (Zosyn 3.375gm Ivpb (Pre-Docked)) 50 mls @ 100 mls/hr IVPB Q8H-IV [facility] PRN Reason: Protocol Last Admin: 11/14/16 11:17 Dose: 100 mls/hr Memantine (Namenda -) 10 mg PO BID [facility] Last Admin: 11/14/16 11:17 Dose: 10 mg - Objective Vital Signs: Vital Signs Temperature 98.5 F 11/14/16 05:54 Pulse Rate 79 11/14/16 05:54 Respiratory Rate 20 11/14/16 05:54 Blood Pressure 147/75 11/14/16 05:54 O2 Sat by Pulse Oximetry (%) 97 11/13/16 21:00 Constitutional: Yes: No Distress, Calm Cardiovascular: Yes: Regular Rate and Rhythm Respiratory: Yes: Regular, CTA Bilaterally Gastrointestinal: Yes: Normal Bowel Sounds, Soft Musculoskeletal: Yes: WNL Extremities: Yes: Erythema (resolving), Other Integumentary: Yes: Erythema (nearly resolved) Neurological: Yes: Alert, Oriented Psychiatric: Yes: Alert, Oriented Labs: CBC, BMP 11/13/16 06:00 11/13/16 06:00 Assessment/Plan Problem List - Problems (1) Fever Code(s): R50.9 - FEVER, UNSPECIFIED (2) Inability to ambulate due to knee Code(s): R26.2 - DIFFICULTY IN WALKING, NOT ELSEWHERE CLASSIFIED (3) Tachycardia Code(s): R00.0 - TACHYCARDIA, UNSPECIFIED (4) Dementia Code(s): F03.90 - UNSPECIFIED DEMENTIA WITHOUT BEHAVIORAL DISTURBANCE Qualifiers: Dementia type: unspecified type Dementia behavioral disturbance: without behavioral disturbance Qualified Code(s): F03.90 - Unspecified dementia without behavioral disturbance (5) Unsteady gait Code(s): R26.81 - UNSTEADINESS ON FEET cellulitis of the rt knee joint plan blood cx negative continue zosyn swelling of the joint much better physio urine cx report noted
--- NOTE | 2016-11-14 14:12 | EKG ---
Test Reason : Blood Pressure : / mmHG Vent. Rate : 089 BPM Atrial Rate : 089 BPM P-R Int : 188 ms QRS Dur : 088 ms QT Int : 368 ms P-R-T Axes : 042 -30 066 degrees QTc Int : 447 ms NORMAL SINUS RHYTHM WITH SINUS ARRHYTHMIA POSSIBLE LEFT ATRIAL ENLARGEMENT LEFT AXIS DEVIATION ABNORMAL ECG NO PREVIOUS ECGS AVAILABLE Confirmed by LIBBY SAUNDERS MD ([id number]) on 11/14/2016 2:12:22 PM Referred By: Confirmed By:LIBBY SAUNDERS MD
--- NOTE | 2016-11-14 15:26 | EKG ---
Test Reason : Blood Pressure : / mmHG Vent. Rate : 086 BPM Atrial Rate : 086 BPM P-R Int : 196 ms QRS Dur : 082 ms QT Int : 376 ms P-R-T Axes : 047 -34 050 degrees QTc Int : 449 ms SINUS RHYTHM WITH MARKED SINUS ARRHYTHMIA WITH OCCASIONAL PREMATURE VENTRICULAR COMPLEXES POSSIBLE LEFT ATRIAL ENLARGEMENT LEFT AXIS DEVIATION ABNORMAL ECG WHEN COMPARED WITH ECG OF 09-NOV-2016 22:24, PREMATURE VENTRICULAR COMPLEXES ARE NOW PRESENT Confirmed by NICKY PEACE, LIBBY ([id number]) on 11/14/2016 3:25:23 PM Referred By: Will HIDALGO Confirmed By:LIBBY SAUNDERS MD
--- NOTE | 2016-11-14 22:54 | PN ---
Progress Note, Physician - Current Medication List Current Medications: Active Medications Acetaminophen (Tylenol -) 1,000 mg PO Q6H PRN PRN Reason: FEVER OR PAIN Last Admin: 11/12/16 22:31 Dose: 1,000 mg Heparin Sodium (Porcine) (Heparin -) 5,000 unit SQ BID [facility] Last Admin: 11/14/16 21:58 Dose: 5,000 unit Piperacillin Sod/Tazobactam Sod (Zosyn 3.375gm Ivpb (Pre-Docked)) 50 mls @ 100 mls/hr IVPB Q8H-IV [facility] PRN Reason: Protocol Last Admin: 11/14/16 18:17 Dose: 100 mls/hr Memantine (Namenda -) 10 mg PO BID [facility] Last Admin: 11/14/16 21:59 Dose: 10 mg - Objective Vital Signs: Vital Signs Temperature 98.1 F 11/14/16 15:02 Pulse Rate 98 H 11/14/16 15:02 Respiratory Rate 20 11/14/16 15:02 Blood Pressure 126/63 11/14/16 15:02 O2 Sat by Pulse Oximetry (%) 99 11/14/16 09:00 Labs: CBC, BMP 11/13/16 06:00 11/13/16 06:00 Problem List - Problems (1) Fever Code(s): R50.9 - FEVER, UNSPECIFIED (2) Inability to ambulate due to knee Code(s): R26.2 - DIFFICULTY IN WALKING, NOT ELSEWHERE CLASSIFIED (3) Tachycardia Code(s): R00.0 - TACHYCARDIA, UNSPECIFIED (4) Dementia Code(s): F03.90 - UNSPECIFIED DEMENTIA WITHOUT BEHAVIORAL DISTURBANCE Qualifiers: Qualified Code(s): F03.90 - Unspecified dementia without behavioral disturbance (5) Unsteady gait Code(s): R26.81 - UNSTEADINESS ON FEET
[2016-11-15] MEDS: PIPERACILLIN/TAZOB 3.375 GM 50 ML IVPB SCH ×2 (01:22→10:20)
[2016-11-15] MEDS: HEPARIN NA (PORCINE) 5,000 UNITS/ML 1ML VIAL SQ SCH (10:19)
[2016-11-15] MEDS: MEMANTINE HCL 10 MG TABLET (FP) PO SCH (10:20)
[2016-11-15 13:55] VITALS: BP 124/70; PULSE 92; TEMP 98.3
[2016-11-15] MEDS ORDERED: LEVOFLOXACIN 750 MG TABLET PO SCH (14:30)
--- NOTE | 2016-11-15 14:31 | PN ---
Progress Note, Physician History of Present Illness: knee swelling nearly resolved pain resolved patient walking with physio - Current Medication List Current Medications: Active Medications Acetaminophen (Tylenol -) 1,000 mg PO Q6H PRN PRN Reason: FEVER OR PAIN Last Admin: 11/12/16 22:31 Dose: 1,000 mg Heparin Sodium (Porcine) (Heparin -) 5,000 unit SQ BID [facility] Last Admin: 11/15/16 10:19 Dose: 5,000 unit Levofloxacin (Levaquin) 750 mg PO DAILY [facility] Memantine (Namenda -) 10 mg PO BID [facility] Last Admin: 11/15/16 10:20 Dose: 10 mg - Objective Vital Signs: Vital Signs Temperature 98.3 F 11/15/16 13:52 Pulse Rate 92 H 11/15/16 13:52 Respiratory Rate 20 11/15/16 13:52 Blood Pressure 124/70 11/15/16 13:52 O2 Sat by Pulse Oximetry (%) 98 11/14/16 21:00 Constitutional: Yes: No Distress, Calm HENT: Yes: Atraumatic Cardiovascular: Yes: Regular Rate and Rhythm Respiratory: Yes: Regular, CTA Bilaterally Gastrointestinal: Yes: Normal Bowel Sounds, Soft Musculoskeletal: Yes: WNL Extremities: Yes: WNL Neurological: Yes: Alert, Oriented Psychiatric: Yes: Alert, Oriented Labs: CBC, BMP 11/13/16 06:00 11/13/16 06:00 Assessment/Plan Problem List - Problems (1) Fever Code(s): R50.9 - FEVER, UNSPECIFIED (2) Inability to ambulate due to knee Code(s): R26.2 - DIFFICULTY IN WALKING, NOT ELSEWHERE CLASSIFIED (3) Tachycardia Code(s): R00.0 - TACHYCARDIA, UNSPECIFIED (4) Dementia Code(s): F03.90 - UNSPECIFIED DEMENTIA WITHOUT BEHAVIORAL DISTURBANCE Qualifiers: Dementia type: unspecified type Dementia behavioral disturbance: without behavioral disturbance Qualified Code(s): F03.90 - Unspecified dementia without behavioral disturbance (5) Unsteady gait Code(s): R26.81 - UNSTEADINESS ON FEET cellulitis of the rt knee joint plan will switch to oral abx continue levaquin for another 5 days swelling of the joint much better physio urine cx report noted
== END 2016-11-15 18:25 | DRG 563 ==
LOC: JER 12:31 → JERBED 18:30 → J7W 11-10 08:05
PROVIDERS: ADMIT Internal Medicine; ATTEND Internal Medicine
DX: S83.411A Sprain of medial collateral ligament of right knee, initial encounter (principal); L03.115 Cellulitis of right lower limb; R26.81 Unsteadiness on feet; I10 Essential (primary) hypertension; M19.90 Unspecified osteoarthritis, unspecified site; M17.11 Unilateral primary osteoarthritis, right knee; M24.811 Other specific joint derangements of right shoulder, not elsewhere classified; F03.90 Unspecified dementia, unspecified severity, without behavioral disturbance, psychotic disturbance, mood disturbance, and anxiety; R00.0 Tachycardia, unspecified; Z86.73 Personal history of transient ischemic attack (TIA), and cerebral infarction without residual deficits; R50.9 Fever, unspecified; R41.0 Disorientation, unspecified; W18.39XA Other fall on same level, initial encounter; Y93.89 Activity, other specified; Y92.091 Bathroom in other non-institutional residence as the place of occurrence of the external cause; Z96.652 Presence of left artificial knee joint
CPT/HCPCS: 36415; 70450-TC; 73030-TC-RT; 73560-TC-LT; 73562-TC-RT; 73700-TC-RT; 80053; 80061; 81003; 81015; 82550; 82553; 83721; 84443; 84484; 85025; 85027; 85651; 86140; 87040; 87086; 93005; 93010; 93306-TC; 93880-TC; 97116-GP; 97161-GP; 99283-25; G0008; J1644; Q2037